=== PATIENT | male | born 1975 | race Caucasian/White ===

== ENCOUNTER → 2017-03-24 | Outpatient (CLI) | payer OTHER ==
--- NOTE | 2017-03-24 09:13 | RAD ---
INDICATION: LEFT KNEE PAIN X 1 DAY COMPARISON: None. IMPRESSION: Left knee: 3 views obtained without acute fracture or dislocation.
== END | disposition home or self-care (01) ==
LOC: DXRADRC 08:55
PROVIDERS: ATTEND Physician Assistant Medical
DX: M25.562 Pain in left knee (principal)
CPT/HCPCS: 73562